=== PATIENT | female | born 1975 | race Caucasian/White ===

== ENCOUNTER 2016-09-26 12:08 | Emergency (ER) | payer OTHER ==
[2016-09-26 12:17] VITALS: BP 117/86; PULSE 78; TEMP 98; BMI 27.4
--- NOTE | 2016-09-26 12:17 | PDOC ---
History of Present Illness - General Chief Complaint: Laceration Stated Complaint: FINGER PAIN Time Seen by Provider: 09/26/16 12:11 History Source: Patient Exam Limitations: No Limitations - History of Present Illness Initial Comments: 09/26/16 12:14 41 yo caught her right long finger in the car door when she pushed it shut. Occurred: reports: just prior to arrival Severity: reports: moderate Upper Extremity Pain Location: right: 3rd finger Method of Injury: reports: direct blow Modifying Factors: improves with: None Associated Symptoms: none Extremity Pain Location - Extremity Pain Location Extremity Pain Locations: right: 3rd finger Past History - Past Medical History Allergies/Adverse Reactions: Allergies Allergy/AdvReac Type Severity Reaction Status Date / Time No Known Allergies Allergy Verified 09/26/16 12:09 Home Medications: Ambulatory Orders Ondansetron [Zofran Odt -] 4 mg SL TID #21 od.tablet 09/26/16 Oxycodone HCl/Acetaminophen [Percocet 5-325 mg Tablet] 1 - 2 tab PO Q6H #20 tab MDD 6 09/26/16 Review of Systems - Review of Systems Able to Perform ROS?: Yes Is the patient limited Urdu proficient: Yes Constitutional: No: Symptoms Reported HEENTM: No: Symptoms Reported Respiratory: No: Symptoms reported Cardiac (ROS): No: Symptoms Reported ABD/GI: No: Symptoms Reported : No: Symptoms Reported Musculoskeletal: Yes: See HPI Integumentary: Yes: See HPI Neurological: No: Symptoms reported Psychiatric: No: Anxiety, Depression Endocrine: No: Symptoms Reported Hematologic/Lymphatic: No: Symptoms Reported All Other Systems: Reviewed and Negative *Physical Exam - Physical Exam General Appearance: Yes: Nourished, Appropriately Dressed. No: Apparent Distress HEENT: positive: EOMI, MARY, Normal ENT Inspection, Normal Voice Neck: positive: Trachea midline, Supple. negative: Tender, Carotid bruit Respiratory/Chest: positive: Lungs Clear, Normal Breath Sounds. negative: Chest Tender, Respiratory Distress Cardiovascular: positive: Regular Rhythm, Regular Rate. negative: Murmur Gastrointestinal/Abdominal: positive: Normal Bowel Sounds, Flat, Soft. negative : Tender Rectal Exam: positive: deferred Lymphatic: negative: Adenopathy, Tenderness Musculoskeletal: positive: Normal Inspection Extremity: positive: Other (Linear diagonal lac to distal finger pad. Total length is 1 cm) Integumentary: positive: Normal Color Procedures - Laceration/Wound Repair Right Distal Plantar 3rd digit Wound Length: to 2.5 cm Wound Explored: clean, no foreign body present Wound's Depth, Shape: superficial Betadine Prep: Yes Anesthesia: 1% Lidocaine Amount of Anesthetic (ccs): 4 Wound Repaired With: Sutures Suture Size/Type: 4:0, nylon Number of Sutures: 2 Layer Closure: No Sterile Dressing Applied: Yes *DC/Admit/Observation/Transfer Diagnosis at time of Disposition: Laceration of finger of right hand Qualifiers: Encounter type: initial encounter Qualified Code(s): S61.219A - Laceration without foreign body of unspecified finger without damage to nail, initial encounter - Discharge Dispostion Disposition: HOME Condition at time of disposition: Good Admit: No - Prescriptions Prescriptions: Oxycodone HCl/Acetaminophen [Percocet 5-325 mg Tablet] 1 - 2 tab PO Q6H #20 tab MDD 6 Ondansetron [Zofran Odt -] 4 mg SL TID #21 od.tablet - Patient Instructions Printed Discharge Instructions: DI for Laceration Repair Additional Instructions: Mel- I am so sorry that you got this deep cut to your finger. Leave this gauze on for 48 hours.... martha't let it get wet. Have the two stiches removed in a 10 Days. Return to us if worse or any problems. Percocet is for bad pain..... it will upset your stomach. Take a zofran odt before you use a percocet. If you do use the percocet, don't drive. Best- Dr. Khari Sanchez
[2016-09-26] MEDS ORDERED: OXYCODONE/APAP 5/325MG COMBO TABLET PO ONE (12:39)
[2016-09-26] MEDS ORDERED: ONDANSETRON *ODT* 4 MG TABLET SL ONE (12:39)
[2016-09-26] MEDS ORDERED: LIDOCAINE HCL 1%, 10 MG/ML (50 mL VIAL) SQ ONE (12:39)
== END 2016-09-26 13:26 | disposition home or self-care (01) ==
LOC: FER 12:08
PROC: 0HQFXZZ Repair Right Hand Skin, External Approach (ICD-10-PCS; principal; 2016-09-26)
DX: S61.212A Laceration without foreign body of right middle finger without damage to nail, initial encounter (principal); W20.8XXA Other cause of strike by thrown, projected or falling object, initial encounter; Y93.89 Activity, other specified; Y92.89 Other specified places as the place of occurrence of the external cause
CPT/HCPCS: 73140-TC-RT; 99283-25

== ENCOUNTER 2016-10-05 08:21 | Emergency (ER) | payer OTHER ==
[2016-10-05 08:36] VITALS: BP 122/78; PULSE 75; TEMP 98.1; BMI 27.4
--- NOTE | 2016-10-05 08:42 | PDOC ---
Suture Removal/Wound Check HPI - History of Present Illness Chief Complaint: Suture/Staple Removal(Here) Stated Complaint: SUTURE REMOVAL Time Seen by Provider: 10/05/16 08:28 History Source: Yes: Patient Exam Limitations: Yes: No Limitations Treated at: [facility] [place] ED Date of Last ED visit: 09/26/16 - Previous ED Treatment Type of procedure performed on last visit: Yes: Laceration Repair - Onset of Previous Treatment Date of Occurence: 09/26/16 Comment:: 10/05/16 08:38 41 year old RHD female returns for suture removal. 9 days ago, was seen here after slamming on car door. Xray at that time negative. 2 sutures were placed. Pt returns to ED for suture removal. Has no complaints. Past History - Past Medical History Allergies/Adverse Reactions: Allergies No Known Allergies Allergy (Verified 10/05/16 08:26) Home Medications: Ambulatory Orders NK [No Known Home Medication] 10/05/16 - Immunization History Immunizations Up to Date: Yes - Social History Smoking Status: Never smoked Suture Removal/Wound Check PE - Physical Exam Laceration/Wound Check Symptoms: reports: None Comments: 10/05/16 08:40 2 sutures in 3rd right digit on distal volar tip. Well healed, granulated. no erythema or drainage. Current Severity Level: None Maximum Severity Level: None Pain Localization: None Location of Laceration/Wound: right: Finger Pain Radiation: None *Review of Systems - Review of Systems Able to Perform ROS?: Yes Comments:: 10/05/16 08:40 GENERAL/CONSTITUTIONAL: No fever, weakness. HEAD, EYES, EARS, NOSE AND THROAT: No change in vision. No ear pain or discharge. No sore throat. CARDIOVASCULAR: No chest pain or shortness of breath. RESPIRATORY: No cough, wheezing, or hemoptysis. GASTROINTESTINAL: No abdominal pain, nausea, vomiting, diarrhea, or decreased PO intolerance. GENITOURINARY: No dysuria, frequency, or change in urination. MUSCULOSKELETAL: No joint or muscle swelling or pain. No neck or back pain. SKIN: Finger laceration s/p suturing NEUROLOGIC: No headache, vertigo, loss of consciousness, or change in strength/ sensation. ENDOCRINE: No increased thirst. No abnormal weight change. HEMATOLOGIC/LYMPHATIC: No anemia, easy bleeding, or history of blood clots. ALLERGIC/IMMUNOLOGIC: No hives or skin allergy. Procedures - Additional Procedures Progress: 10/05/16 08:41 2 sutures removed without complications. Scar precautions given. Covered with bandage. Medical Decision Making - Medical Decision Making 10/05/16 08:41 2 sutures removed without complications. Scar precautions given. I discussed the physical exam findings, ancillary test results and final diagnoses with the patient. I answered all of the patient's questions. The patient was satisfied with the care received and felt comfortable with the discharge plan and treatment plan. The patient will call their primary care physician within 24 hours to arrange follow-up and will return to the Emergency Department with any new, persistant or worsening symptoms. *DC/Admit/Observation/Transfer Diagnosis at time of Disposition: Visit for suture removal - Discharge Dispostion Disposition: HOME Condition at time of disposition: Improved Admit: No - Patient Instructions Printed Discharge Instructions: DI for Suture Removal Additional Instructions: To minimize scarring, please minimize sun exposure. Follow up with your doctor. Print Language: MALTESE
== END 2016-10-05 08:45 | disposition home or self-care (01) ==
LOC: FER 08:21
DX: Z48.02 Encounter for removal of sutures (principal)
CPT/HCPCS: 99282-25

== ENCOUNTER 2017-06-16 14:10 | Emergency (ER) | payer OTHER ==
--- NOTE | 2017-06-16 14:12 | PDOC ---
History of Present Illness - General History Source: Patient, Spouse <Chan Marquez - Last Filed: 06/16/17 14:44> <RinaHannahLindaTim - Last Filed: 06/16/17 16:54> - General Chief Complaint: Chest Pain Stated Complaint: CHEST PAIN Time Seen by Provider: 06/16/17 14:11 - History of Present Illness Initial Comments: 06/16/17 14:44 The patient is a 42 year old Khmer-speaking female, with no significant past medical history, who presents to the emergency department with, significant chest pain beginning yesterday. She reports her pain to worsen upon inspiration and to be contained to the left upper quadrant. As per patients , they were eating dinner last night when her chest pain began. He reports that her pain worsened today. denies any cold symptoms. She denies recent fevers, chills, headache or dizziness. She denies recent nausea, vomit, diarrhea or constipation. She denies recent dysuria, frequency, urgency or hematuria. She denies recent chest pain or shortness of breath. Allergies: NKA Social history: Nonsmoker. Denies EtOH use and recreational drug use. : Primary Care Physician: Dr. Lalitha James (Chan Marquez) 06/16/17 14:31 Physical exam: Alert, moderate distress due to sharp left sided chest pain occurring with inspiration only, appears comfortable at rest. Afebrile, vital signs normal including respiratory rate of 17 and oxygen saturation of 100% on room air HEENT clear Neck supple without bruit mass or nodes Chest clear with full breath sounds throughout bilaterally, but pain and splinting with deep inspiration No rib cage tenderness or deformity. No breast swelling, erythema, induration, warmth, or tenderness to exam. No masses palpable CV S1 and S2 normal without murmur rub or gallop pulses full and symmetric no JVD or edema no bruits no tachycardia, regular rhythm Abdomen soft nontender without organomegaly. Without mass. Rivera's negative Extremities no CCE. No posterior calf swelling or tenderness Neurological intact Skin clear, no rash, adequate turgor and wet mucous membranes Impression: Severe pleuritic chest pain, probably musculoskeletal. Less likely is some form of pleuritis, neuritis, or pulmonary embolus Plan: Chest x-ray, analgesics, further evaluation depending on results. 06/16/17 14:35 (Tim Umanzor) Past History <Chan Marquez - Last Filed: 06/16/17 14:44> - Immunization History Immunization Up to Date: Yes - Suicide/Smoking/Psychosocial Hx Smoking History: Never smoked Hx Alcohol Use: No Drug/Substance Use Hx: No Substance Use Type: None <Tim Umanzor - Last Filed: 06/16/17 16:54> - Past Medical History Allergies/Adverse Reactions: Allergies Allergy/AdvReac Type Severity Reaction Status Date / Time No Known Allergies Allergy Verified 06/16/17 14:11 Home Medications: Ambulatory Orders Hydroxyzine Pamoate [Vistaril -] 25 mg PO TID PRN #15 capsule 06/16/17 Ibuprofen 800 mg PO QID PRN #20 tablet 06/16/17 Review of Systems - Review of Systems Able to Perform ROS?: Yes <Chan Marquez - Last Filed: 06/16/17 14:44> <Tim Umanzor - Last Filed: 06/16/17 16:54> - Review of Systems Comments:: 06/16/17 14:44 CONSTITUTIONAL: Absent: fever, no chills, no fatigue EYES: Absent: visual changes ENT: Absent: ear pain, no sore throat CARDIOVASCULAR: +Chest pain. Absent: no palpitations RESPIRATORY: Absent: cough, no SOB GI: Absent: abdominal pain, no nausea, no vomiting, no constipation, no diarrhea GENITOURINARY: Absent: dysuria, no frequency, no hematuria MUSKULOSKELETAL: Absent: back pain, no arthralgia, no myalgia SKIN: Absent: rash NEURO: Absent: headache (Chan Marquez) - Vital Signs Last Vital Signs Temp Pulse Resp BP Pulse Ox 98.1 F 69 17 120/82 100 06/16/17 14:10 06/16/17 14:16 06/16/17 14:16 06/16/17 14:16 06/16/17 14:16 - ADDITIONAL ORDERS Additional order review: Laboratory Results 06/16/17 14:32 Urine Color Yellow Urine Appearance Clear Urine pH 8.5 H Ur Specific [place] 1.015 Urine Protein Negative Urine Glucose (UA) Negative Urine Ketones Negative Urine Blood Trace-intact H Urine Nitrite Negative Urine Bilirubin Negative Urine Urobilinogen 0.2 Ur Leukocyte Esterase Negative Urine RBC 0-2 Urine WBC 0-1 Urine Bacteria Few Urine HCG, Qual Negative - RADIOLOGY Radiology Studies Ordered: Category Date Time Status CHEST PA & LAT [RAD] Stat Radiology 06/16/17 15:41 Completed - Medications Given in the ED: ED Medications Discontinued Medications Generic Name Dose Route Start Last Admin Trade Name Craigq PRN Reason Stop Dose Admin Hydroxyzine Pamoate 25 mg 06/16/17 14:30 06/16/17 14:56 Vistaril - PO 06/16/17 14:31 25 mg ONCE ONE Administration Ketorolac Tromethamine 60 mg 06/16/17 14:29 06/16/17 14:57 Toradol Injection - IM 06/16/17 14:30 60 mg ONCE ONE Administration Medical Decision Making <Chan Marquez - Last Filed: 06/16/17 14:44> <Tim Umanzor - Last Filed: 06/16/17 16:54> - Medical Decision Making 06/16/17 16:53 EKG: Normal. No ischemic changes. Patient much improved after Toradol and Vistaril. Pain appears completely resolved. She is breathing deeply without discomfort and moving her left upper extremity without pain. Symptoms appear to be musculoskeletal. We'll continue anti-inflammatory, rest, and follow-up as needed. (Tim Umanzor) *DC/Admit/Observation/Transfer <Chan Marquez - Last Filed: 06/16/17 14:44> - Discharge Dispostion Admit: No <Tim Umanzor - Last Filed: 06/16/17 16:54> Diagnosis at time of Disposition: Acute chest wall pain - Discharge Dispostion Disposition: HOME Condition at time of disposition: Improved - Prescriptions Prescriptions: Hydroxyzine Pamoate [Vistaril -] 25 mg PO TID PRN #15 capsule PRN Reason: pain, muscle spasm Ibuprofen 800 mg PO QID PRN #20 tablet PRN Reason: Pain - Referrals Referrals: Lalitha Jaems [Primary Care Provider] - 2 Days - Patient Instructions Printed Discharge Instructions: DI for Musculoskeletal Pain Additional Instructions: Rest, medication as directed. Return to ER if pain becomes more severe or other symptoms develop, especially shortness of breath or difficulty breathing. Otherwise see family physician for further evaluation and treatment 2-3 days. Avoid strenuous activity with the upper body, arms. - Post Discharge Activity Forms/Work/School Notes: Back to Work - Attestations Scribe Attestion: 06/16/17 14:44 Documentation prepared by Chan Marquez, acting as medical and health services manager for Tim Sandra MD. (Chan Marquez)
[2017-06-16 14:15] VITALS: TEMP 98.1; BMI 27.4
[2017-06-16 14:16] VITALS: BP 120/82; PULSE 69
[2017-06-16] MEDS ORDERED: KETOROLAC TROMETHAMINE 60 MG/2 ML VIAL IM ONE (14:29)
[2017-06-16] MEDS ORDERED: hydrOXYzine PAMOATE 25 MG CAPSULE (FP) PO ONE ×2 (14:30→14:49)
[2017-06-16 14:40] LABS: PH,URINE 8.5 (4.5-8); URINE APPEARANCE Clear; URINE BILIRUBIN Negative (NEGATIVE); URINE GLUCOSE (UA) Negative (NEGATIVE); URINE KETONE Negative (NEGATIVE); URINE NITRITE Negative (NEGATIVE); URINE PROTEIN Negative (NEGATIVE); URINE UROBILINOGEN 0.2 (0.2-1.0)
[2017-06-16 14:42] LABS: URINE BLOOD Trace-intact (NEGATIVE); URINE COLOR YELLOW
[2017-06-16 14:43] LABS: HCG,QUALITATIVE URINE NEGATIVE
[2017-06-16] MEDS ORDERED: KETOROLAC TROMETHAMINE 60 MG/2 ML VIAL ONE (14:49)
[2017-06-16 15:21] LABS: URINE BACTERIA FEW /hpf (NEGATIVE); URINE RBC 0-2 /hpf (0-3); URINE WBC 0-1 (0-5)
--- NOTE | 2017-06-18 15:34 | EKG ---
Test Reason : Blood Pressure : / mmHG Vent. Rate : 067 BPM Atrial Rate : 067 BPM P-R Int : 126 ms QRS Dur : 086 ms QT Int : 392 ms P-R-T Axes : 050 038 033 degrees QTc Int : 414 ms NORMAL SINUS RHYTHM POSSIBLE LEFT ATRIAL ENLARGEMENT BORDERLINE ECG NO PREVIOUS ECGS AVAILABLE Confirmed by SANTOSH ABRAMS MD ([id number]) on 06/18/2017 3:34:13 PM Referred By: Confirmed By:SANTOSH ABRAMS MD
== END 2017-06-16 16:54 | disposition home or self-care (01) ==
LOC: FER 14:10
PROC: 3E0233Z Introduction of Anti-inflammatory into Muscle, Percutaneous Approach (ICD-10-PCS; principal; 2017-06-16)
DX: R07.9 Chest pain, unspecified (principal)
CPT/HCPCS: 71046-TC; 81003; 81015; 84703; 93005; 99283-25

== ENCOUNTER 2017-08-05 10:21 | Emergency (ER) | payer OTHER ==
--- NOTE | 2017-08-05 10:39 | PDOC ---
History of Present Illness - General Chief Complaint: Back Pain Stated Complaint: BACK PAIN Time Seen by Provider: 08/05/17 10:24 History Source: Patient (Patient walked in along with family member complaining of lower back pain) Exam Limitations: No Limitations - History of Present Illness Timing/Duration: 24 hours Severity: mild, moderate Modifying Factors: improves with: cold therapy, rest Associated Symptoms: reports: denies symptoms Past History - Travel Traveled outside of the country in the last 30 days: No Close contact w/someone who was outside of country & ill: No - Past Medical History Allergies/Adverse Reactions: Allergies Allergy/AdvReac Type Severity Reaction Status Date / Time No Known Allergies Allergy Verified 08/05/17 10:33 Home Medications: Ambulatory Orders Ibuprofen 800 mg PO QID PRN #20 tablet 06/16/17 hydrOXYzine PAMOATE [Vistaril -] 25 mg PO TID PRN #15 capsule 06/16/17 Methocarbamol [Robaxin -] 750 mg PO BID #14 tablet 08/05/17 Naproxen [Naprosyn] 500 mg PO BID #14 tablet 08/05/17 COPD: No Other medical history: back pains - Immunization History Immunization Up to Date: Yes - Suicide/Smoking/Psychosocial Hx Smoking History: Never smoked Hx Alcohol Use: No Drug/Substance Use Hx: No Substance Use Type: None Review of Systems - Review of Systems Able to Perform ROS?: Yes Is the patient limited French proficient: Yes Constitutional: Yes: Symptoms Reported, Malaise HEENTM: No: Symptoms Reported, See HPI, Eye Pain, Blurred Vision, Tearing, Recent change in vision, Double Vision, Cataracts, Ear Pain, Ocular Prothesis, Ear Discharge, Nose Pain, Nose Congestion, Tinnitus, Nose Bleeding, Hearing Loss , Throat Pain, Throat Swelling, Mouth Pain, Dental Problems, Difficulty Swallowing, Mouth Swelling, Other Respiratory: No: Symptoms reported, See HPI, Cough, Orthopnea, Shortness of Breath, SOB with Exertion, SOB at Rest, Stridor, Wheezing, Productive cough, Hemoptysis, Other Cardiac (ROS): No: Symptoms Reported, See HPI, Chest Pain, Edema, Irregular Heart Rate, Lightheadedness, Palpitations, Syncope, Chest Tightness, Other : No: Symptoms Reported, See HPI, Burning, Dysuria, Discharge, Frequency, Flank Pain, Hematuria, Incontinence, Pain, Urgency, Testicular Mass, Testicular Swelling, Lesions, Testicular Pain, Other Musculoskeletal: Yes: Symptoms Reported, See HPI, Back Pain Integumentary: No: Symptoms Reported, See HPI, Bruising, Change in Color, Change in Hair/Nails, Dryness, Erythema, Flushing, Lesions, Lumps, Pallor, Pruritus, Rash, Sweating, Other Neurological: No: Symptoms reported, See HPI, Headache, Numbness, Paresthesia, Pre-Existing Deficit, Seizure, Tingling, Tremors, Weakness, Unsteady Gait, Ataxia, Dizziness, Other All Other Systems: Reviewed and Negative *Physical Exam - Physical Exam General Appearance: Yes: Nourished, Appropriately Dressed, Mild Distress, Obese HEENT: positive: MARY Neck: positive: Supple Respiratory/Chest: positive: Lungs Clear, Normal Breath Sounds Cardiovascular: positive: Regular Rate Musculoskeletal: positive: Normal Inspection (Normal range of motion), Other Extremity: positive: Normal Capillary Refill, Normal Inspection Integumentary: positive: Normal Color Neurologic: positive: Fully Oriented, Alert, Normal Mood/Affect Medical Decision Making - Medical Decision Making X rays read by me = wnl. Patient feels much improved after im Toradol and po Flexeril 08/05/17 15:18 *DC/Admit/Observation/Transfer Diagnosis at time of Disposition: Back pain Qualifiers: Back pain location: low back pain Chronicity: acute Back pain laterality: unspecified Sciatica presence: without sciatica Qualified Code(s): M54.5 - Low back pain - Discharge Dispostion Disposition: HOME Condition at time of disposition: Improved Admit: No - Prescriptions Prescriptions: Methocarbamol [Robaxin -] 750 mg PO BID #14 tablet Naproxen [Naprosyn] 500 mg PO BID #14 tablet - Referrals Referrals: Lalitha James [Primary Care Provider] - - Patient Instructions Printed Discharge Instructions: DI for Low Back Pain Print Language: IRISH - Post Discharge Activity Forms/Work/School Notes: Back to Work
[2017-08-05 10:42] VITALS: BP 112/77; PULSE 67; TEMP 97.6; BMI 28.3
[2017-08-05 10:45] LABS: PH,URINE 7.5 (4.5-8); URINE APPEARANCE Clear; URINE BILIRUBIN Negative (NEGATIVE); URINE GLUCOSE (UA) Negative (NEGATIVE); URINE KETONE Negative (NEGATIVE); URINE LEUK ESTERASE Negative (NEGATIVE); URINE NITRITE Negative (NEGATIVE); URINE PROTEIN Negative (NEGATIVE); URINE UROBILINOGEN 0.2 (0.2-1.0)
[2017-08-05 10:53] LABS: HCG,QUALITATIVE URINE NEGATIVE
[2017-08-05 10:54] LABS: URINE BLOOD Trace-intact (NEGATIVE); URINE COLOR YELLOW
[2017-08-05] MEDS ORDERED: CYCLOBENZAPRINE HCL 10 MG TABLET (FP) PO ONE (11:12)
[2017-08-05] MEDS ORDERED: KETOROLAC TROMETHAMINE 60 MG/2 ML VIAL IM ONE (11:12)
[2017-08-05] MEDS ORDERED: CYCLOBENZAPRINE HCL 10 MG TABLET (FP) ONE (11:24)
[2017-08-05] MEDS ORDERED: KETOROLAC TROMETHAMINE 60 MG/2 ML VIAL ONE (11:24)
[2017-08-05 11:57] LABS: URINE RBC 0-1 /hpf (0-3); URINE WBC NONE SEEN (0-5)
[2017-08-05 11:58] LABS: EPI CELLS RARE /HPF; URINE BACTERIA NONE SEEN /hpf (NEGATIVE)
== END 2017-08-05 12:46 | disposition home or self-care (01) ==
LOC: FER 10:21
PROC: 3E0233Z Introduction of Anti-inflammatory into Muscle, Percutaneous Approach (ICD-10-PCS; principal; 2017-08-05)
DX: M54.5 Low back pain (principal)
CPT/HCPCS: 72100-TC-FY; 81003; 81015; 84703; 99282-25

== ENCOUNTER 2019-08-04 02:13 | Emergency (ER) | payer OTHER ==
[2019-08-04 02:20] VITALS: BP 134/79; PULSE 78; TEMP 98.2; BMI 32.1
[2019-08-04] MEDS ORDERED: predniSONE 20 MG TABLET (UD) PO ONE (02:25)
[2019-08-04] MEDS ORDERED: KETOROLAC TROMETHAMINE 60 MG/2 ML VIAL IM ONE (02:26)
[2019-08-04] MEDS ORDERED: KETOROLAC TROMETHAMINE 60 MG/2 ML VIAL ONE (02:27)
[2019-08-04] MEDS ORDERED: predniSONE 20 MG TABLET (UD) ONE (02:27)
--- NOTE | 2019-08-04 02:28 | PDOC ---
History of Present Illness - General Chief Complaint: Pain, Acute Stated Complaint: RT SHOULDER/ARM PAIN Time Seen by Provider: 08/04/19 02:22 History Source: Patient Exam Limitations: No Limitations - History of Present Illness Initial Comments: 08/04/19 02:28 This is a 44-year-old female who comes in with her for evaluation of right arm pain. Patient said she has been having pain times a couple of weeks. Patient said she was cleaning when she reached for something and felt the pain shoot down her arm. Patient said the pain radiates from her neck to her shoulder down into her all the way to the middle of her forearm. Patient said the pain is worse with certain movements. Patient has taken Motrin for the pain with some relief. Patient says the pain is a burning pain. Patient denies any chest pain, shortness of breath or any other complaints. Allergies: as per nursing notes Past Medical History: none Social history: Lives with family. No smoking. No alcohol. No illicit drugs. Surgical history: None General: No fevers or chills, no weakness, no weight loss HEENT: No change in vision. No sore throat,. No ear pain CardioVascular: no chest discomfort. No shortness of breath Respiratory:No cough, or wheezing. Gastrointestinal: no nausea, vomiting, diarrhea or constipation, No rectal bleeding Genitourinary: No dysuria, hematuria, or frequency Musculoskeletal: No joint or muscle pain or swelling Neurologic: No headache, vertigo, dizziness or loss of consciousness Psychiatric: nor depression Skin: No rashes or easy bruising Endocrine: no increased thirst or abnormal weight change Allergic: no skin or latex allergy All other systems reviewed and normal GENERAL: The patient is awake, alert, and fully oriented, in no acute distress. HEAD: Normal with no signs of trauma. NECK there is no tenderness on palpation of the cervical spine. EYES: Pupils equal, round and reactive to light, extraocular movements intact, sclera anicteric, conjunctiva clear. EXTREMITIES:atraumatic, Normal range of motion, no edema. There is tenderness on palpation of the shoulder and some spasm paracervical on the right. There is no tenderness swelling or increased in warmth of the arm. There is decreased range of motion secondary to pain of the arm at the shoulder. Neurovascular is intact. NEUROLOGICAL: Normal speech, normal gait. PSYCH: Normal mood, normal affect. SKIN: Warm, Dry, normal turgor, no rashes or lesions noted. Assessment and plan: This is a 44-year-old female who comes here with her for evaluation of right arm pain. Patient most likely has a herniated or pinched nerve in her neck that is causing the pain. Patient was given some prednisone and a prescription for naproxen and Flexeril was sent to her pharmacy. Patient was referred to the orthopedist discharged. Past History - Past Medical History Allergies/Adverse Reactions: Allergies Allergy/AdvReac Type Severity Reaction Status Date / Time No Known Allergies Allergy Verified 08/05/17 10:33 Home Medications: Ambulatory Orders Cyclobenzaprine HCl [Flexeril 10 mg] 10 mg PO HS #30 tablet 08/04/19 Naproxen [Naprosyn -] 500 mg PO BID #28 tablet 08/04/19 COPD: No - Immunization History Immunization Up to Date: Yes - Psycho Social/Smoking Cessation Hx Smoking History: Never smoked Hx Alcohol Use: No Drug/Substance Use Hx: No Substance Use Type: None *Physical Exam - Vital Signs Last Vital Signs Temp Pulse Resp BP Pulse Ox 98.2 F 78 18 134/79 100 08/04/19 02:16 08/04/19 02:16 08/04/19 02:16 08/04/19 02:16 08/04/19 02:16 Discharge - Discharge Information Problems reviewed: Yes Clinical Impression/Diagnosis: Right cervical radiculopathy Condition: Stable Disposition: HOME - Admission No - Follow up/Referral Referrals: Lalitha James [Primary Care Provider] - Osvaldo Guzman MD [Staff Physician] - - Patient Discharge Instructions Additional Instructions: Take naproxen 1 tablet twice a day with food do not take on an empty stomach. Take the Flexeril before bed as it will make you drowsy try not to take it during the day/ Follow-up with an orthopedist Return to the emergency department immediately with ANY new, persistent or worsening symptoms. Continue any medications as previously prescribed by your physician. You should follow up with your primary doctor as soon as possible regarding today's emergency department visit. . Please make sure your doctor reviews the results of your emergency evaluation. Thank you for coming to the Emergency Department today for your care. It was a pleasure to see you today. Please note that your evaluation is INCOMPLETE until you follow-up with your doctor. - Post Discharge Activity
== END 2019-08-04 02:37 | disposition home or self-care (01) ==
LOC: FER 02:13
PROC: 3E0233Z Introduction of Anti-inflammatory into Muscle, Percutaneous Approach (ICD-10-PCS; principal; 2019-08-04)
DX: M54.12 Radiculopathy, cervical region (principal)
CPT/HCPCS: 96372; 99284-25

== ENCOUNTER 2022-02-26 21:32 | Emergency (ER) | payer OTHER ==
[2022-02-26 21:38] VITALS: BP 129/78; PULSE 65; RESP 18; TEMP 97.9; BMI 37.8
[2022-02-26] MEDS ORDERED: SODIUM CHLORIDE 1,000 ML IV STA (21:51)
[2022-02-26] MEDS ORDERED: ACETAMINOPHEN 1000 MG/100 ML BAG IVPB ONE (21:51)
[2022-02-26] MEDS ORDERED: ACETAMINOPHEN INJECTION 100 ML IVPB ONE (22:02)
[2022-02-26 22:16] LABS: HEMATOCRIT 37.4 % (32.4-45.2); HEMOGLOBIN 13.5 G/dL (10.7-15.3); MCH 33.6 pg (25.7-33.7); MEAN CELL VOLUME 93.4 fl (80-96); MEAN PLT VOLUME 8.7 fl (7.5-11.1); PLATELET COUNT 286.2 10^3/uL (134-434); RDW 13.3 % (11.6-15.6); WHITE BLOOD COUNT 10.1 10^3/uL (4.0-10.8)
[2022-02-26 22:20] LABS: HCG,QUALITATIVE URINE Negative
[2022-02-26] MEDS ORDERED: KETOROLAC TROMETHAMINE 30 MG/1 ML VIAL IVPUSH ONE (22:30)
[2022-02-26 22:31] LABS: EPITHELIAL CELLS FEW /hpf
[2022-02-26 22:32] LABS: ALBUMIN 3.7 g/dl (3.4-5.0); BILIRUBIN,TOTAL 0.3 mg/dl (0.2-1); CALCIUM 9.8 mg/dl (8.5-10); CREATININE 0.5 mg/dl (0.55-1.3); TOT PROT 7.2 g/dl (6.4-8.2)
[2022-02-26 22:32] LABS: PLATELET ESTIMATE ADEQUATE
[2022-02-26] MEDS ORDERED: KETOROLAC TROMETHAMINE 30 MG/1 ML VIAL ONE (22:42)
== END 2022-02-27 02:03 | disposition home or self-care (01) ==
LOC: FER 21:32
PROC: 3E033GC Introduction of Other Therapeutic Substance into Peripheral Vein, Percutaneous Approach (ICD-10-PCS; principal; 2022-02-26)
DX: R10.2 Pelvic and perineal pain (principal)
CPT/HCPCS: 36415; 76830-TC; 80053; 81003; 81015; 84703; 85027; 96361; 96374; 96375; 99284-25

== ENCOUNTER 2024-04-24 13:02 | Emergency (ER) | payer OTHER ==
[2024-04-24 13:10] VITALS: BP 115/89; PULSE 62; RESP 20; TEMP 97.9; BMI 34.9
[2024-04-24] MEDS ORDERED: FAMOTIDINE 20 MG/50 ML IVPB 20 MG/50 ML MG IVPB ONE (13:50)
[2024-04-24] MEDS ORDERED: MAG HYDROX/AL HYDROX/SIMETH 30 ML UNIT-DOSE CUP ONE (13:50)
[2024-04-24] MEDS: MAG HYDROX/AL HYDROX/SIMETH -MYLANTA- ORAL SUSPENSION PO ONE (13:55)
[2024-04-24] MEDS: FAMOTIDINE 20 MG/50 ML IVPB 20 MG in PREMIX 50 IVPB ONE (14:05)
[2024-04-24 14:35] LABS: HEMATOCRIT 42.6 % (32.4-45.2); HEMOGLOBIN 14.5 G/dL (10.7-15.3); MCH 31.7 pg (25.7-33.7); MCHC 34.1 g/dl (32.0-36.0); MEAN PLT VOLUME 9.5 fl (7.5-11.1); PLATELET COUNT 290.2 10^3/uL (134-434); RBC 4.58 10^6/uL (3.60-5.2); RDW 13.2 % (11.6-15.6); WHITE BLOOD COUNT 7.8 10^3/uL (4.0-10.8)
[2024-04-24 14:45] LABS: HCG,QUALITATIVE URINE NEGATIVE
[2024-04-24 15:09] LABS: ALBUMIN 4.3 g/dl (3.4-5.0); CALCIUM 9.6 mg/dl (8.5-10.1); CREATININE 0.5 mg/dl (0.6-1.3); TOT PROT 7.6 g/dl (6.4-8.2)
[2024-04-24 15:10] LABS: BILIRUBIN,TOTAL 0.5 mg/dl (0.2-1)
[2024-04-24 15:25] LABS: PLATELET ESTIMATE ADEQUATE
== END 2024-04-24 18:00 | disposition home or self-care (01) ==
LOC: FER 13:02
PROC: 3E033GC Introduction of Other Therapeutic Substance into Peripheral Vein, Percutaneous Approach (ICD-10-PCS; principal; 2024-04-24)
DX: R10.13 Epigastric pain (principal); R11.0 Nausea
CPT/HCPCS: 36415; 76705-TC; 80053; 81003; 81015; 83690; 84484; 84703; 85027; 93005; 96365; 99285-25

== ENCOUNTER 2024-10-13 09:04 | Emergency (ER) | payer OTHER ==
[2024-10-13 09:16] VITALS: BP 127/71; PULSE 65; RESP 18; TEMP 97.8; BMI 52.9
[2024-10-13] MEDS ORDERED: ACETAMINOPHEN 500 MG TABLET (FP) ONE (09:20)
[2024-10-13] MEDS: ACETAMINOPHEN 500 MG TABLET (FP) PO ONE (09:25)
== END 2024-10-13 11:08 | disposition home or self-care (01) ==
LOC: FER 09:04
DX: M25.561 Pain in right knee (principal); X50.1XXA Overexertion from prolonged static or awkward postures, initial encounter; Y93.01 Activity, walking, marching and hiking
CPT/HCPCS: 73562-TC-RT-FY; 99283-25